=== PATIENT | female | born 1965 | race Two or more races ===

== ENCOUNTER 2019-02-02 15:25 | Emergency (ER) | payer BC ==
[~2019-02-02] VITALS: Ht 165.1 cm; Wt 116.6 kg
[2019-02-02 15:56] VITALS: BP 147/92
[2019-02-02] MEDS ORDERED: VENLAFAXINE HCL 25MG TABLET PO ONE (19:15)
[2019-02-02] MEDS ORDERED: VENLAFAXINE HCL 37.5mg XR cap PO ONE ×2 (19:15→19:53)
== END 2019-02-02 20:01 ==
LOC: ER 15:25
DX: F41.9 Anxiety disorder, unspecified (principal); F31.9 Bipolar disorder, unspecified; Z76.0 Encounter for issue of repeat prescription